=== PATIENT | male | born 1980 | race African-American/Black ===

== ENCOUNTER 2024-10-19 09:27 | Outpatient (AMB) | payer MEDICAID, SELFPAY ==
[2024-10-19 09:34] VITALS: BP 137/87; PULSE 85; RESP 18; TEMP 36.3; O2SAT 93; BMI 30.2
--- NOTE | 2024-10-19 09:34 | PD.RESCLINIC ---
Vital Signs 10/19/24 09:34 Height 1.78 m Height Method Stated Weight 95.368 kg Weight Measurement Method Standing Scale BMI 30.2 BP 137/87 H Blood Pressure Source Automatic Cuff Blood Pressure Location Left Upper Arm Position Sitting Respiration 18 Pulse 85 Pulse Source Monitor Temp 97.3 F Temp Source Oral Pulse Oximetry (%) 93 L Oxygen Delivery Method Room Air Allergies/Meds Allergies & Medications Allergies No Known Allergies Allergy (Verified 10/19/24 09:35) Medication Reconciliation amlodipine 5 mg tablet 5 mg PO QDAY #30 tabs 07/25/24 [Rx Confirmed 10/19/24] metformin 500 mg tablet 1,000 mg (2 x 500 mg) PO BIDWMEAL 1 month #120 tabs 07/25/24 [Rx Confirmed 10/19/24] atorvastatin 40 mg tablet 40 mg PO QHS 1 month #30 tabs 10/19/24 [Rx] lisinopril 10 mg tablet 10 mg PO QDAY #30 tabs 10/19/24 [Rx] sildenafil 50 mg tablet 50 mg PO QDAY PRN sexual activity #6 tabs 10/19/24 [Rx] sitagliptin phosphate 25 mg tablet (Januvia) 25 mg PO QDAY #30 tabs 10/19/24 [Rx] MA Intake Visit Data Collection New Patient or Established: Established Patient (seen at [facility] within 3 years) Seen by Clinical Staff ONLY (RN/MA): No Pain Present Currently: No Pain scale:: 0 Pain Scale Used: Monaco-Huerta/Numerical Otolaryngology Nurse Required: No PCP or OBGYN visit in last 3 months: Yes Do You Feel Safe at Home: Yes Authorities Contacted: N/A Smoking Status Smoking Status: Never smoker Immunization / Flu Flu Vaccine in the Last 12 Months: Yes Flu Vaccine Exclusion Criteria: Already Received Past Medical History Social History SMOKING STATUS: Smoking status: Never smoker Patient Portal Questionaires Social History Tobacco History Smoking Status: Never smoker Domestic Abuse History Do You Feel Safe at Home: Yes Review of Systems Report any current symptoms Only answer those that you have currently: Past Medical History Past Medical History Have you ever been diagnosed with any of the following: History of Present Illness HPI Narrative 43-year-old male with past medical history of hypertension diabetes was seen in the [facility] due to problems with his erections. Patient stated that he has been taking his medications as prescribed, but did not had time to do recent blood work that was ordered as he has been having some issues at home. Patient states that he has been having issues with his partner and that during intercourse he has been having issues getting and maintaining an erection, endorses that he does not she full arousal and ejaculation during the past few times. He mentioned that his has been having some hardships with his partner due to communication, but he also thinks that medication could be affecting his erections. Given patient's diabetes and hypertension are controlled I explained to him that there may be a component of psychological effect causing problems with his erection. I counseled the patient and explained that this finding could be due to many components therefore more labs were needed to be done before diagnosis. I advised starting a trial of sildenafil to see how he responds to this, all side effects and contraindications including but not limited to blurry vision, adverse effects when combining with alcohol use, and most importantly need to tell EMS use of sildenafil if he experiences any chest pain afterwards electrolyte you cannot get any nitrates. He was understanding of this and was open to trying sildenafil and seeing a therapist if need be. 10/19/2024: The patient presented for follow-up of his labs. His A1c was 6.5, testosterone 401, and TSH WNL. He reported doing much better with his sexual dysfunction. He reported he continues to exercise 30 minutes to 1 hours daily. He denied any lightheadedness, headache, chest pain, SOB, abdominal pain, any changes in bowel or bladder habit, fever or chills, nausea or vomiting. He was reinforced on dietary changes with eating salads before every meals, and cutting down on sugars and carbohydrate diet. Review of Systems Review of Systems Systems Reviewed: All systems reviewed, normal except as documented Objective/Exam Narrative Physical exam: General: Well-nourished middle-aged gentleman, no acute distress, Alert and Oriented x 3 HEENT: Moist mucous membranes, oropharynx clear Neck: Supple, No masses, No JVD CVS: S1S2 Regular rate and rhythm, No murmurs, rubs or gallops Lungs: Clear to auscultation with no accessory use, no wheeze no rhonchi Abd: Soft, NT/ND, +BS, no organomegaly Ext: No edema, warm and well perfused Skin: No rash Psych: Appropriate mood and affect Assessment & Plan Diagnosis / Problem List (1) Hypertension: Status: Acute Qualifiers: Hypertension type: unspecified Qualified Code(s): I10 - Essential (primary) hypertension Assessment & Plan: His BP today is 137/87 He reported continuing with prescribed blood pressure medications amlodipine 5 mg daily and lisinopril 5 mg daily Plan: -Lisinopril dose was increased to 10 mg daily ?Continue amlodipine 5 mg daily -Plan to increase lisinopril dose to 20 mg daily and stop amlodipine in next visit as he also has diabetes mellitus type 2 and maximum tolerated dose of NACHO inhibitor's is recommended (2) Diabetes mellitus: Status: Acute Qualifiers: Diabetes mellitus complication status: without complication Diabetes mellitus penitentiary insulin use: unspecified dealer compliance representative insulin use status Diabetes mellitus type: type 2 Qualified Code(s): E11.9 - Type 2 diabetes mellitus without complications Assessment & Plan: last A1c was 6.6 that has been improved to 6.5 ?Patient has been taking his medications daily with metformin thousand Mg twice daily Plan: ?Ordered A1c, BMP and Lipid panel in 3 months ?Will continue with metformin 1000 mg twice daily -Added sitagliptin 25 Mg daily -Continue with Atorvastatin 40mg daily at night (3) Erectile dysfunction: Status: Acute Qualifiers: Erectile dysfunction type: unspecified Qualified Code(s): N52.9 - Male erectile dysfunction, unspecified Assessment & Plan: ?Patient has been experiencing issues maintaining and getting erections, but he reported this has been improving ?Most likely due to psychological component as testosterone level was WNL with 401. Plan: ? Refilled sildenafil 50 mg and explained side effects and contraindications -We will continue to manage hypertension diabetes mellitus type 2 (4) Fatigue: Status: Acute Qualifiers: Fatigue type: unspecified Qualified Code(s): R53.83 - Other fatigue Assessment & Plan: Likely secondary to diabetes mellitus including other psycho social component Plan: - We will continue to manage diabetes mellitus and hypertension - Continue with daily exercise Plan F/U in 3 months with A1c, BMP and Lipid panel Additional Assessment Attending note: I, Alex Moran MD, attest that I was physically present for the spencer portions of the service and evaluated the patient with the resident and I reviewed and discussed the case with the resident and agree with the resident's findings and plans of care as documented above. Follow-up visit. Labs reviewed. We will titrate up his dose of lisinopril as his blood pressure should tolerate it. May continue sildenafil as needed. Diabetes self-care reviewed including diet, exercise, footcare, eye care. Hemoglobin A1c at goal. Continue metformin and sitagliptin. Alex Moran MD Physician Billing Established Patient Established Patient: E/M Level 3-CPT 74404 Office Procedures [facility] Level of Care Nursing/Assessment Patient Status: Established Patient Nursing Assessment/Reassessment: Medication Reconciliation, Update PMH in EMR and Vital Signs Coordination of Care: Complex Care and Chronic Disease 1-5, Consent,records obtained, informed consent, Education Simp Pt/Fam, Results/Orders obtained and Staff clarify orders Established Patient Charge Established Patient Point Assignment: 90 Established Patient Point Charge: EP Level 3 (80-115)
== END 2024-10-19 10:25 | disposition home or self-care (01) ==
LOC: HODAHC 09:27
PROVIDERS: Supervising Provider Internal Medicine; Visit Provider Student in an Organized Health Care Education/Training Program
DX: I10 Essential (primary) hypertension (principal); N52.9 Male erectile dysfunction, unspecified; E11.9 Type 2 diabetes mellitus without complications; Z79.84 Long term (current) use of oral hypoglycemic drugs; R53.83 Other fatigue
CPT/HCPCS: 99213; G0463

== ENCOUNTER 2025-01-16 14:43 | Outpatient (AMB) | payer MEDICAID, SELFPAY ==
[2025-01-16 14:57] VITALS: BP 127/83; PULSE 91; RESP 16; TEMP 36.3; O2SAT 94; BMI 29.9
--- NOTE | 2025-01-16 14:57 | PD.RESCLINIC ---
Vital Signs 01/16/25 14:57 Height 1.78 m Height Method Stated Weight 94.517 kg Weight Measurement Method Standing Scale BMI 29.9 BP 127/83 Blood Pressure Source Automatic Cuff Blood Pressure Location Left Upper Arm Position Sitting Respiration 16 Pulse 91 Pulse Source Monitor Temp 97.3 F Temp Source Temporal Artery Scan Pulse Oximetry (%) 94 L Oxygen Delivery Method Room Air Allergies/Meds Allergies & Medications Allergies No Known Allergies Allergy (Verified 01/16/25 14:58) Medication Reconciliation amlodipine 5 mg tablet 5 mg PO QDAY #30 tabs 01/16/25 [Rx] atorvastatin 40 mg tablet 40 mg PO QHS 1 month #30 tabs 01/16/25 [Rx] lisinopril 10 mg tablet 10 mg PO QDAY #30 tabs 01/16/25 [Rx] metformin 500 mg tablet 1,000 mg (2 x 500 mg) PO BIDWMEAL 1 month #120 tabs 01/16/25 [Rx] sitagliptin phosphate 25 mg tablet (Januvia) 25 mg PO QDAY #30 tabs 01/16/25 [Rx] sildenafil 100 mg tablet 100 mg PO QDAY PRN sexual activity #10 tabs 01/23/25 [Rx] MA Intake Visit Data Collection New Patient or Established: Established Patient (seen at [facility] within 3 years) Seen by Clinical Staff ONLY (RN/MA): No Pain Present Currently: No Pain scale:: 0 Pain Scale Used: Monaco-Huerta/Numerical Radiology Director Required: No PCP or OBGYN visit in last 3 months: Yes Hx Now: No Do You Feel Safe at Home: Yes Authorities Contacted: N/A Smoking Status Smoking Status: Never smoker Immunization / Flu Flu Vaccine in the Last 12 Months: No Flu Vaccine Exclusion Criteria: No Exclusion Criteria Past Medical History Social History SMOKING STATUS: Smoking status: Never smoker Patient Portal Questionaires Social History Tobacco History Smoking Status: Never smoker Domestic Abuse History Do You Feel Safe at Home: Yes Review of Systems Report any current symptoms Only answer those that you have currently: Past Medical History Past Medical History Have you ever been diagnosed with any of the following: History of Present Illness HPI Narrative 43-year-old male with past medical history of hypertension, diabetes, and erectile dysfunction was seen in the [facility] for follow-up on lab results and medication refills. Patient stated he has been doing well and he has lost some weight since I last saw him. He mentioned that he has been trying to increase his daily physical activity and is taking the stairs instead of the elevator at his job. He also stated that he has been using 100 mg of sildenafil at a time (taking 2 pills of 50 mg), and wants to know if the dose could go up therefore will increase to the 00 mg tablets instead of 50 mg tablet. He stated he has been having better performance in his sexual activity and that he has been having better communication with his partner which has also helped with his sexual activity. He has no new complaints at this time. Will continue current management for now his lab results were discussed with him and will get a microalbumin creatinine ratio in 3 months. Review of Systems Review of Systems Narrative Review of Systems: Constitutional: Denies sweats, Denies weight loss/gain, Denies fever, Denies chills. HEENT: Denies hearing loss, Denies ear pain, Denies postnasal drip, Denies double vision, Denies blurry vision. Respiratory: Denies shortness of breath, Denies cough, Denies wheezing. Cardiovascular: Denies chest pain, Denies palpitations, Denies sudden loss of consciousness. GI: Denies blood in stool, Denies constipation, Denies abdominal pain, Denies difficulty swallowing, Denies nausea or vomit. : Denies urinary incontinence, Denies pain while urinating, Denies increased urinary frequency. MSK: Denies joint pain, Denies joint swelling, Denies numbness. Skin: Denies rash, Denies itching, Denies easy bruising. Neuro: Denies headaches, Denies dizziness, Denies seizures. Objective/Exam General General Appearance: alert, in no apparent distress, comfortable and well developed Head Head exam: atraumatic and normocephalic Eye Eye exam: Present normal appearance, PERRL and EOMI ENT ENT exam: Present normal exam, mucous membranes moist, mucous membranes dry and normal external ear exam Neck Neck exam: Present normal inspection and full ROM Resp Respiratory exam: Present normal lung sounds bilaterally Card Cardiovascular exam: Present regular rate, normal rhythm and normal heart sounds Abdominal Abdominal exam: Present soft and normal bowel sounds Extremities Extremities exam: Present normal inspection and full ROM Neuro Neurological exam: Present alert, oriented X3, CN II-XII intact and normal gait Psych Psychiatric exam: Present normal affect and normal mood Skin Skin exam: Present warm and normal color Assessment & Plan Diagnosis / Problem List (1) Erectile dysfunction: Status: Acute Qualifiers: Erectile dysfunction type: unspecified Qualified Code(s): N52.9 - Male erectile dysfunction, unspecified Assessment & Plan: ? Patient has been having good results with medication and has been having better communication with his partner which has shown improvement in his sexual activity. -States would like higher dose as he's taking 100mg (two pills of 50mg) -Testosterone on 01/09/2025 was 271 from 401, did blood work in the evening Plan: ?Ordered sildenafil 100 mg and explained side effects and contraindications (2) Diabetes mellitus: Status: Acute Qualifiers: Diabetes mellitus complication status: without complication Diabetes mellitus senior living insulin use: unspecified senior living insulin use status Diabetes mellitus type: type 2 Qualified Code(s): E11.9 - Type 2 diabetes mellitus without complications Assessment & Plan: last A1c was 6.75 on 01/09/2025 ?Patient has been taking his medications daily and has been increasing physical activity. -Has lost 1kg since last visit Plan: ?Will continue with metformin 1000 mg twice daily and Januvia 25mg -Refill sent -Urine micro albumin/cr ratio ordered for 3 months (3) Hypertension: Status: Acute Qualifiers: Hypertension type: unspecified Qualified Code(s): I10 - Essential (primary) hypertension Assessment & Plan: His BP today is 127/83 well controlled Plan: ?Blood pressure stable ?Continue lisinopril 10mg qdya and amlodipine 5 mg -Refills sent Additional Assessment Internal Medicine Attending Note: Case discussed with and agree with note and management plan of Resident Physician as per Resident's Note above. Issues of concern for present visit are as follows: Follow-up visit. Patient reporting doing reasonably well. Trying to increase activity. Has lost some weight. Tolerating medications. Diabetes self-care reviewed including diet, exercise, footcare, eye care. Hemoglobin A1c 6.75 on recent labs. We will check a urine microalbumin creatinine ratio with his next lab check. Blood pressure well-controlled. Patient reporting needing 100 mg of sildenafil for effect, we will increase the dose. Patient advised on proper use. Follow-up in 3 months. Alex Moran MD Physician Billing Established Patient Established Patient: E/M Level 3-CPT 96841 Office Procedures [facility] Level of Care Nursing/Assessment Patient Status: Established Patient Nursing Assessment/Reassessment: Medication Reconciliation, Update PMH in EMR and Vital Signs Coordination of Care: Complex Care and Chronic Disease 1-5, Consent,records obtained, informed consent, Education Simp Pt/Fam, Results/Orders obtained and Staff clarify orders Established Patient Charge Established Patient Point Assignment: 90 Established Patient Point Charge: EP Level 3 (80-115)
== END 2025-01-16 15:16 | disposition home or self-care (01) ==
LOC: HODAHC 14:43
PROVIDERS: Supervising Provider Internal Medicine
DX: E11.9 Type 2 diabetes mellitus without complications (principal); I10 Essential (primary) hypertension; N52.9 Male erectile dysfunction, unspecified; Z76.0 Encounter for issue of repeat prescription; Z79.84 Long term (current) use of oral hypoglycemic drugs
CPT/HCPCS: 99213; G0463

== ENCOUNTER 2025-04-17 14:31 | Outpatient (AMB) | payer MEDICAID, SELFPAY ==
[2025-04-17 14:40] VITALS: BP 122/75; PULSE 87; RESP 16; TEMP 36.4; O2SAT 95; BMI 29.9
--- NOTE | 2025-04-17 14:40 | ACNOTE_ITS ---
Vital Signs 04/17/25 14:40 Height 1.78 m Height Method Stated Weight 94.801 kg Weight Measurement Method Standing Scale BMI 29.9 BP 122/75 Blood Pressure Source Automatic Cuff Blood Pressure Location Right Upper Arm Position Sitting Respiration 16 Pulse 87 Pulse Source Monitor Temp 97.6 F Temp Source Oral Pulse Oximetry (%) 95 Oxygen Delivery Method Room Air Allergies/Meds Allergies & Medications Allergies No Known Allergies Allergy (Verified 04/17/25 14:41) Medication Reconciliation amlodipine 5 mg tablet 5 mg PO QDAY #30 tabs 04/17/25 [Rx] atorvastatin 40 mg tablet 40 mg PO QHS 1 month #30 tabs 04/17/25 [Rx] lisinopril 10 mg tablet 10 mg PO QDAY #30 tabs 04/17/25 [Rx] metformin 500 mg tablet 1,000 mg (2 x 500 mg) PO BIDWMEAL 1 month #120 tabs 04/17/25 [Rx] sitagliptin phosphate 25 mg tablet (Januvia) 25 mg PO QDAY #30 tabs 04/17/25 [Rx] tadalafil 20 mg tablet 20 mg PO .q3day PRN sexual activity #6 tabs 04/17/25 [Rx] MA Intake Visit Data Collection New Patient or Established: Established Patient (seen at [facility] within 3 years) Seen by Clinical Staff ONLY (RN/MA): No Reason for Visit:: DISCUSS LAB RESULTS Pain Present Currently: No Pain scale:: 0 Pain Scale Used: Monaco-Huerta/Numerical Nylon Hot Wire Cutter Required: No PCP or OBGYN visit in last 3 months: Yes Smoking Status Smoking Status: Never smoker Immunization / Flu Flu Vaccine in the Last 12 Months: Yes Flu Vaccine Exclusion Criteria: No Exclusion Criteria Past Medical History Social History SMOKING STATUS: Smoking status: Never smoker Patient Portal Questionaires Social History Tobacco History Smoking Status: Never smoker Review of Systems Report any current symptoms Only answer those that you have currently: Past Medical History Past Medical History Have you ever been diagnosed with any of the following: History of Present Illness HPI Narrative 43-year-old male with past medical history of hypertension, diabetes, and erectile dysfunction was seen in the [facility] for follow-up on lab results and medication refills. Patient stated everything has been going well and he has no new complaints. States has been eating better and trying to be more active. Patient asked about tadalafil instead of sildenafil. Discussed lab results with patient. Review of Systems Review of Systems Narrative Review of Systems: Constitutional: Denies sweats, Denies weight loss/gain, Denies fever, Denies chills. HEENT: Denies hearing loss, Denies ear pain, Denies postnasal drip, Denies double vision, Denies blurry vision. Respiratory: Denies shortness of breath, Denies cough, Denies wheezing. Cardiovascular: Denies chest pain, Denies palpitations, Denies sudden loss of consciousness. GI: Denies blood in stool, Denies constipation, Denies abdominal pain, Denies difficulty swallowing, Denies nausea or vomit. : Denies urinary incontinence, Denies pain while urinating, Denies increased urinary frequency. MSK: Denies joint pain, Denies joint swelling, Denies numbness. Skin: Denies rash, Denies itching, Denies easy bruising. Neuro: Denies headaches, Denies dizziness, Denies seizures. Objective/Exam General General Appearance: alert, in no apparent distress, comfortable and well developed Head Head exam: atraumatic and normocephalic Eye Eye exam: Present normal appearance, PERRL and EOMI ENT ENT exam: Present normal exam, mucous membranes moist and normal external ear exam Neck Neck exam: Present normal inspection and full ROM Resp Respiratory exam: Present normal lung sounds bilaterally Card Cardiovascular exam: Present regular rate, normal rhythm and normal heart sounds Abdominal Abdominal exam: Present soft and normal bowel sounds Extremities Extremities exam: Present normal inspection and full ROM Neuro Neurological exam: Present alert, oriented X3, CN II-XII intact and normal gait Psych Psychiatric exam: Present normal affect and normal mood Skin Skin exam: Present warm and normal color Assessment & Plan Diagnosis / Problem List (1) Diabetes mellitus: Status: Acute Qualifiers: Diabetes mellitus type: type 2 Diabetes mellitus long term care administrator insulin use: unspecified retirement insulin use status Diabetes mellitus complication status: without complication Qualified Code(s): E11.9 - Type 2 diabetes mellitus without complications Assessment & Plan: last A1c was 6.75 on 01/09/2025 ?Patient has been taking his medications daily and has been increasing physical activity. -microalbumin WNL Plan: ?Will continue with metformin 1000 mg twice daily and Januvia 25mg -Refill sent (2) Erectile dysfunction: Status: Acute Qualifiers: Erectile dysfunction type: unspecified Qualified Code(s): N52.9 - Male erectile dysfunction, unspecified Assessment & Plan: ?patient asked to switch to tadalafil. - Told patient not to take tadalafil and sildenafil together or overlap. Plan: ?Stopped sildenafil 100 mg - Ordered Tadalafil 20mg q3day and explained side effects. (3) Hypertension: Status: Acute Qualifiers: Hypertension type: unspecified Qualified Code(s): I10 - Essential (primary) hypertension Assessment & Plan: His BP today is 122/75 well controlled Plan: ?Blood pressure stable ?Continue lisinopril 10mg qdya and amlodipine 5 mg -Refills sent Plan F/U in 3 months Case disclosed with Attending Dr. Luisa Russo PGY1 Office Procedures [facility] Level of Care Nursing/Assessment Patient Status: Established Patient Nursing Assessment/Reassessment: Medication Reconciliation, Update PMH in EMR and Vital Signs Coordination of Care: Complex Care and Chronic Disease 1-5, Consent,records obtained, informed consent, Education Simp Pt/Fam, Lab and Imaging orders, Results/Orders obtained and Staff clarify orders Established Patient Charge Established Patient Point Assignment: 105 Established Patient Point Charge: EP Level 3 (80-115)
== END 2025-04-17 15:14 | disposition home or self-care (01) ==
LOC: HODAHC 14:31
DX: E11.9 Type 2 diabetes mellitus without complications (principal); I10 Essential (primary) hypertension; N52.9 Male erectile dysfunction, unspecified; Z76.0 Encounter for issue of repeat prescription; Z79.84 Long term (current) use of oral hypoglycemic drugs
CPT/HCPCS: 99213; G0463

== ENCOUNTER 2025-07-17 15:12 | Outpatient (AMB) | payer MEDICAID, SELFPAY ==
--- NOTE | 2025-07-17 15:36 | PD.RESCLINIC ---
Vital Signs 07/17/25 15:37 Height 1.78 m Height Method Measured Weight 97.239 kg Weight Measurement Method Standing Scale BMI 30.7 BP 147/82 H Blood Pressure Source Automatic Cuff Blood Pressure Location Right Upper Arm Position Sitting Respiration 18 Pulse 89 Pulse Source Monitor Temp 97.6 F Temp Source Temporal Artery Scan Pulse Oximetry (%) 93 L Oxygen Delivery Method Room Air Allergies/Meds Allergies & Medications Allergies No Known Allergies Allergy (Verified 04/17/25 14:41) MA Intake Visit Data Collection New Patient or Established: Established Patient (seen at [facility] within 3 years) Seen by Clinical Staff ONLY (RN/MA): No Reason for Visit:: FOLLOW UP Pain Present Currently: No 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: No PCP or OBGYN visit in last 3 months: Yes Date of Last PCP or OBGYN visit: 04/17/25 Do You Feel Safe at Home: Yes Authorities Contacted: N/A Smoking Status Smoking Status: Never smoker Immunization / Flu Flu Vaccine in the Last 12 Months: Yes Flu Vaccine Exclusion Criteria: Already Received Past Medical History Social History SMOKING STATUS: Smoking status: Never smoker Patient Portal Questionaires Social History Tobacco History Smoking Status: Never smoker Domestic Abuse History Do You Feel Safe at Home: Yes Review of Systems Report any current symptoms Only answer those that you have currently: Past Medical History Past Medical History Have you ever been diagnosed with any of the following: History of Present Illness HPI Narrative 43-year-old male with past medical history of hypertension, diabetes, and erectile dysfunction was seen in the [facility] for follow-up on lab results and medication refills. Patient stated everything has been going well and he has no new complaints. States has been eating better and trying to be more active. Patient asked about tadalafil instead of sildenafil. Discussed lab results with patient. 07/17/2025 3-seen in clinic on follow-up, 4 months since last visit, reported no acute symptoms. Requesting refills on medications. Denies chest pain, shortness of breath or cough. Patient unsure of last A1c, no A1c on file, ordered labs, will follow-up with renal panel and A1c. We went over dietary changes and need for active lifestyle. As well as home blood pressure and blood glucose monitoring. Patient demonstrated understanding, medications refilled. Review of Systems Review of Systems Narrative Review of Systems: General: Denies fevers or chills HEENT: Denies congestion or sore throat Heart: Denies chest pain or palpitations Lungs: Denies shortness of breath or cough Abdomen: Denies diarrhea, nausea, vomiting, constipation, bright red blood per rectum or melena Genitourinary: Denies frequency, urgency, dysuria, or hematuria Musculoskeletal: Denies joint pain, denies muscular pain Neurology: Denies any numbness, tingling Review of systems otherwise negative except what is mentioned above. Objective/Exam Narrative Physical exam: General: AOx3, cooperative Skin: Intact, no cyanosis or edema noted. HEENT: Atraumatic/normocephalic, LATIA, neck supple Heart: RRR, S1 and S2 without clicks or murmurs Lungs: Clear on auscultation bilaterally, no difficulty breathing Abdomen: Soft, nontender. Bowel sounds present . Vascular: Peripheral pulses palpable Neuro: No focal neurological deficits noted. Assessment & Plan Diagnosis / Problem List (1) Diabetes mellitus: Status: Acute Qualifiers: Diabetes mellitus type: type 2 Diabetes mellitus long term care phlebotomist insulin use: unspecified long term care phlebotomist insulin use status Diabetes mellitus complication status: without complication Qualified Code(s): E11.9 - Type 2 diabetes mellitus without complications Assessment & Plan: Currently reported no symptoms, denied neuropathy or vision changes. Patient had A1c levels in the past, but does not remember, no A1c on file. Counseled regarding need for home blood glucose monitoring using fingerstick blood glucose. Plan: ? Follow-up with renal panel and A1c levels. ? Continue metformin and Januvia (2) Erectile dysfunction: Status: Acute Qualifiers: Erectile dysfunction type: unspecified Qualified Code(s): N52.9 - Male erectile dysfunction, unspecified Assessment & Plan: Requesting refills for sildenafil, patient reported that he uses medications occasionally, usually 1 prescription lasts him over 5 to 6 months. Plan: ? Continue sildenafil 50 mg daily to be taken as needed, adverse events and medication interactions discussed. (3) Hypertension: Status: Acute Qualifiers: Hypertension type: unspecified Qualified Code(s): I10 - Essential (primary) hypertension Assessment & Plan: Noted elevated blood pressure 147/82, patient reported infrequently checking his home blood pressure. Counseled regarding need for home blood pressure monitoring. Plan: ? Continue home blood pressure medications amlodipine and lisinopril Orders: Orders Ambulatory Hemoglobin A1C 07/17/25 Renal Function Panel 07/17/25 Additional Plan Plan of care discussed with attending MD Pete Reyes PGY 3 Office Procedures [facility] Level of Care Nursing/Assessment Patient Status: Established Patient Nursing Assessment/Reassessment: Medication Reconciliation, Update PMH in EMR and Vital Signs Coordination of Care: Complex Care and Chronic Disease 1-5, Consent,records obtained, informed consent, Lab and Imaging orders and Results/Orders obtained Established Patient Charge Established Patient Point Assignment: 80 Established Patient Point Charge: Level 3 (80-115)
[2025-07-17 15:37] VITALS: BP 147/82; PULSE 89; RESP 18; TEMP 36.4; O2SAT 93; BMI 30.7
== END 2025-07-17 15:57 | disposition home or self-care (01) ==
LOC: HODAHC 15:12
PROVIDERS: Supervising Provider Internal Medicine; Visit Provider Student in an Organized Health Care Education/Training Program
DX: E11.9 Type 2 diabetes mellitus without complications (principal); Z79.84 Long term (current) use of oral hypoglycemic drugs; N52.9 Male erectile dysfunction, unspecified; I10 Essential (primary) hypertension; Z76.0 Encounter for issue of repeat prescription
CPT/HCPCS: 99213; G0463

== ENCOUNTER 2025-09-07 15:04 | Outpatient (AMB) | payer MEDICAID, SELFPAY ==
--- NOTE | 2025-09-07 15:16 | ACNOTE_ITS ---
Vital Signs 09/07/25 15:17 Height 1.78 m Height Method Stated Weight 98.6 kg Weight Measurement Method Standing Scale BMI 31.1 BP 130/87 H Blood Pressure Source Automatic Cuff Blood Pressure Location Right Upper Arm Position Sitting Respiration 16 Pulse 89 Pulse Source Monitor Temp 97.0 F Temp Source Temporal Artery Scan Pulse Oximetry (%) 93 L Oxygen Delivery Method Room Air Allergies/Meds Allergies & Medications Allergies No Known Allergies Allergy (Verified 09/07/25 15:18) Medication Reconciliation amlodipine 5 mg tablet 5 mg PO QDAY #30 tabs 07/17/25 [Rx Confirmed 09/07/25] atorvastatin 40 mg tablet 40 mg PO QHS 1 month #30 tabs 07/17/25 [Rx Confirmed 09/07/25] metformin 500 mg tablet 1,000 mg (2 x 500 mg) PO BIDWMEAL 1 month #120 tabs 07/17/25 [Rx Confirmed 09/07/25] sitagliptin phosphate 25 mg tablet (Januvia) 25 mg PO QDAY #30 tabs 07/17/25 [Rx Confirmed 09/07/25] lisinopril 10 mg tablet 10 mg PO QDAY #30 tabs 09/07/25 [Rx] sildenafil 50 mg tablet 50 mg PO QDAY PRN sexual activity #30 tabs 09/07/25 [Rx] MA Intake Visit Data Collection Reason for Visit:: follow up Pain scale:: 0 PCP or OBGYN visit in last 3 months: No Smoking Status Smoking Status: Never smoker Immunization / Flu Flu Vaccine in the Last 12 Months: Yes Flu Vaccine Exclusion Criteria: No Exclusion Criteria Past Medical History Social History SMOKING STATUS: Smoking status: Never smoker Patient Portal Questionaires PHQ-9 PHQ-2 Over the last 2 weeks, how often have you been bothered by any of the following problems? 1. Little interest or pleasure in doing things: not at all 2. Feeling down, depressed, or hopeless: not at all Total score: 0 Social History Tobacco History Smoking Status: Never smoker Review of Systems Report any current symptoms Only answer those that you have currently: Past Medical History Past Medical History Have you ever been diagnosed with any of the following: History of Present Illness HPI Narrative 44-year-old male with past medical history of hypertension, diabetes, and erectile dysfunction was seen in the [facility] for follow-up on lab results and medication refills. Patient denies having any concerning symptoms at this time. He would like refill on his sildenafil and lisinopril which were reordered. Patient also has some concerns regarding his weight but notes an active lifestyle with some questions regarding his dietary needs. Counseled patient on proper diet considering the patient has high blood pressure and prediabetes at this point. Also recommended that the patient use caloric deficit technique to reduce food intake at an acceptable level. Calculated patient's maintenance caloric needs and caloric deficit needed for him to lose 0.25-0.5 pounds per week. Patient is agreeable and he will follow this dietary change and follow-up in 6 months with repeat A1c levels. Objective/Exam Narrative Physical exam: General: Answering questions appropriately, appears stated age Skin: Intact, no cyanosis or edema noted. HEENT: Atraumatic/normocephalic, LATIA, neck supple Heart: RRR, S1 and S2 without clicks or murmurs Lungs: Clear on auscultation bilaterally, no difficulty breathing Abdomen: Soft, nontender. Bowel sounds present . Neuro: No focal neurological deficits noted. Assessment & Plan Diagnosis / Problem List (1) Diabetes mellitus: Status: Acute Qualifiers: Diabetes mellitus type: type 2 Diabetes mellitus group home insulin use: unspecified group home insulin use status Diabetes mellitus complication status: without complication Qualified Code(s): E11.9 - Type 2 diabetes mellitus without complications Assessment & Plan: Currently reported no symptoms, denied neuropathy or vision changes. A1c in December was 6.7, A1c in July was 6.3 Plan: Repeat A1c, lipid panel, CBC, CMP, urinalysis, urine protein albumin labs ordered Continue metformin and Januvia (2) Erectile dysfunction: Status: Acute Qualifiers: Erectile dysfunction type: unspecified Qualified Code(s): N52.9 - Male erectile dysfunction, unspecified Assessment & Plan: Requesting refill Plan: Continue sildenafil 50 mg daily to be taken as needed, adverse events and medication interactions discussed. (3) Hypertension: Status: Acute Qualifiers: Hypertension type: unspecified Qualified Code(s): I10 - Essential (primary) hypertension Assessment & Plan: On home lisinopril, amlodipine BP 130/87 on 09/07/25 well controlled Plan: Continue home blood pressure medications amlodipine and lisinopril Orders: Orders Comprehensive Metabolic Panel Today Ambulatory Hemoglobin A1C Today Protein Total, Random Urine Today Lipid Panel Today CBC Today Urinalysis Today Office Procedures [facility] Level of Care Nursing/Assessment Patient Status: Established Patient Nursing Assessment/Reassessment: Medication Reconciliation, Update PMH in EMR and Vital Signs Coordination of Care: Complex Care and Chronic Disease 1-5, Education Complex Pt/Fam, Consent,records obtained, informed consent, Lab and Imaging orders, Results/Orders obtained and Staff clarify orders Established Patient Charge Established Patient Point Assignment: 110 Established Patient Point Charge: EP Level 3 (80-115)
[2025-09-07 15:17] VITALS: BP 130/87; PULSE 89; RESP 16; TEMP 36.1; O2SAT 93; BMI 31.1
== END 2025-09-07 15:38 | disposition home or self-care (01) ==
LOC: HODAHC 15:04
PROVIDERS: Supervising Provider Internal Medicine
DX: E11.9 Type 2 diabetes mellitus without complications (principal); I10 Essential (primary) hypertension; N52.9 Male erectile dysfunction, unspecified; Z79.84 Long term (current) use of oral hypoglycemic drugs; Z76.0 Encounter for issue of repeat prescription
CPT/HCPCS: 99213; G0463